=== PATIENT | female | born 1985 | race Caucasian/White ===

== ENCOUNTER 2022-07-24 12:20 | Emergency (ER) | payer OTHER, SELFPAY ==
[2022-07-24 12:24] VITALS: BP 107/61; PULSE 75; RESP 14; TEMP 36.8; O2SAT 98; BMI 21.9
[2022-07-24 12:28] VITALS: BP 107/61; PULSE 79; O2SAT 99
[2022-07-24 12:30] VITALS: PULSE 77; O2SAT 100
--- NOTE | 2022-07-24 12:45 | PC.NURSE ---
Pt reports 5-6 weeks of noticing a lump/hard area in left breast under armpit. Marked area during assessment. Reports it has gotten a little better, but is still there. Has history of sore/aches in breasts before her cycle, but the discomfort has continued through two cycles now and wants to get it looked at.
[2022-07-24 13:00] VITALS: PULSE 77; O2SAT 100
[2022-07-24 13:30] VITALS: PULSE 89; O2SAT 100
--- NOTE | 2022-07-24 13:52 | DI.RAD.S_ITS ---
PROCEDURE: XR CHEST 2V INDICATIONS: left breast lump TECHNIQUE: 2 views of the chest were acquired. COMPARISON: None. FINDINGS: Surgical changes and devices: None. Lungs and pleura: Lungs are clear. No pleural effusions or pneumothorax. Mediastinum: Mediastinal contours are normal. Heart size is normal. Bones and chest wall: No suspicious bony abnormalities. Soft tissues appear unremarkable. IMPRESSION: No acute cardiopulmonary process demonstrated radiographically. Dictated by: Elias Damico M.D. on 07/24/2022 at 14:12 Approved by: Elias Damico M.D. on 07/24/2022 at 14:12
--- NOTE | 2022-07-24 13:52 | ED.SKABFB ---
HPI - Skin/Abscess/Foreign Bdy General Chief complaint: Skin/Abscess/Foreign Body Stated complaint: pain in between arm and chest for 5 wks, low apet Time Seen by Provider: 07/24/22 12:54 Source: patient Mode of arrival: Ambulatory Limitations: no limitations History of Present Illness HPI narrative: Patient here for painful nodule in the left breast at the left upper outer quadrant. Ongoing for the past 5 weeks. Has had a lot of fatigue. Has been under lot of stress with moving here. She is in a family. Has had unintentional weight loss recently. No night sweats. Patient uncertain if breast cancer family in the history. Has not had mammogram in the past. Did have a ultrasound of the breast in the past and found to have calcifications. Does not do routine self-breast exams. Patient did have some redness to the area a couple weeks ago and thought it was due to a natural compound to placed under her arm for deodorant. However it only affected the left side. Denies any exertional chest pain. Increased pain with palpation. Patient has appointment with primary care in August Related Data Allergies Allergy/AdvReac Type Severity Reaction Status Date / Time No Known Drug Allergies Allergy Verified 07/24/22 12:29 Review of Systems Review of Systems Narrative: GENERAL: negative chills, fatigue, malaise, fever, sweats. HEENT: negative sinus pain, ear pain, sore throat RESPIRATORY: negative dyspnea, cough CARDIOVASCULAR: negative chest pain, palpitations GASTROINTESTINAL: negative nausea, vomiting, abdominal pain : negative dysuria, frequency, hematuria MUSCULOSKELETAL: negative muscle or bony pain SKIN: negative rash, positive skin lesions NEUROLOGIC: negative weakness, numbness ROS Unobtainable: All systems reviewed & are unremarkable except as noted in HPI and below Patient History Social History Smoking Status: Unknown if ever smoked Smoking Status: Unknown if ever smoked alcohol intake frequency: holidays/special occasions only Substance Use Type: does not use Exam Narrative Exam Narrative: GENERAL: in no distress, not toxic not dyspneic HEAD: Normocephalic. EYES: Pupils equal round ENT: Mucous membranes moist. NECK: Trachea midline. CARDIOVASCULAR: Regular rate and rhythm without murmurs RESPIRATORY: Clear to auscultation. Breath sounds equal bilaterally. No wheezes, rales, or rhonchi. BACK: No flank tenderness. NEURO: AOx4. SKIN: Warm and dry, female nurse, Emelyn, at bedside to entry specialists. There is a palpable tender small mobile nodule at the left breast at the left upper outer quadrant. There is no dimpling of the breast skin. No nipple discharge. No other palpable nodules in the breast, bilaterally. No axillary lymphadenopathy bilaterally. PSYCH: Not anxious, is cooperative Initial Vital Signs Initial Vital Signs: Vital Signs Temperature 98.2 F 07/24/22 12:24 Pulse Rate 75 07/24/22 12:24 Respiratory Rate 14 07/24/22 12:24 Blood Pressure 107/61 07/24/22 12:24 Pulse Oximetry 98 07/24/22 12:24 Oxygen Delivery Method 07/24/22 12:24 Course Orders Ordered: ED Orders 07/24/22 13:52 Chest [XR chest 2V] Stat 07/24/22 14:02 Complete Blood Count AUTO DIFF Stat Comprehensive Metabolic Panel Stat Vital Signs Vital signs: Vital Signs - 8 hr 07/24/22 12:24 07/24/22 12:28 07/24/22 12:28 Temperature 98.2 F Pulse Rate 75 79 Respiratory Rate 14 Blood Pressure 107/61 107/61 Pulse Oximetry 98 99 Oxygen Delivery Method Room Air 07/24/22 12:30 07/24/22 13:00 07/24/22 13:30 Temperature Pulse Rate 77 77 89 Respiratory Rate Blood Pressure Pulse Oximetry 100 100 100 Oxygen Delivery Method 07/24/22 15:21 Temperature Pulse Rate 67 Respiratory Rate 20 Blood Pressure 100/58 L Pulse Oximetry 99 Oxygen Delivery Method Room Air MDM - Skin/Abscess/Foreign Bdy Lab Data 07/24/22 14:02 07/24/22 14:02 Labs: Lab Results 07/24/22 07/24/22 Range/Units 14:02 14:02 WBC 5.8 (4.5-11.0) X10^3/uL RBC 4.35 (4.0-5.2) X10^6/uL Hgb 13.1 (12.0-16.0) g/dL Hct 38.4 (36-46) % MCV 88.3 (80-100) fL MCH 30.2 (26-34) PG MCHC 34.1 (30-36) % RDW 12.2 (11.6-14.8) % Plt Count 225 (150-400) X10^3/uL Neut % (Auto) 66.0 (50-75) % Lymph % (Auto) 24.2 L (25-40) % Archer % (Auto) 7.8 (3-14) % Eos % (Auto) 1.2 L (2-4) % Baso % (Auto) 0.8 (0-2) % Neut # (Auto) 3900 (4980-4978) /uL Lymph # (Auto) 1400 (6913-6929) /uL Archer # (Auto) 500 (0-900) /uL Eos # (Auto) 100 (0-450) /uL Baso # (Auto) 0 (0-100) /uL Sodium 140 (137-145) mmol/L Potassium 3.6 (3.4-5.1) mmol/L Chloride 99 (98-107) mmol/L Carbon Dioxide 33 H (22-32) mmol/L BUN 11 (7-17) mg/dL Creatinine 0.69 (0.52-1.04) mg/dL Estimated GFR > 60 (>60) mL/min BUN/Creatinine Ratio 15.9 (6-22) Glucose 101 H (70-100) mg/dL Calcium 8.9 (8.4-10.2) mg/dL Total Bilirubin 0.7 (0.2-1.3) mg/dL AST 21 (14-36) IU/L ALT 12 (<35) IU/L Alkaline Phosphatase 40 (38-126) U/L Total Protein 7.5 (6.3-8.2) g/dL Albumin 4.4 (3.5-5.0) g/dL Globulin 3.1 (1.7-4.1) g/dL Albumin/Globulin Ratio 1.4 (1.0-2.8) Imaging Data Chest x-ray: Radiologist's Impression: [address] [address] XRay Report Signed Patient: Mariel Drake MR#: [id number] : 1985 Acct:[id number] Age/Sex: 36 / F Date of Service: 07/24/22 Loc: ED Accession Number: [id number] ?? Procedure: XR chest 2V Ordering Provider: Evan Duenas MD PROCEDURE:? XR CHEST 2V ? INDICATIONS:? left breast lump ? TECHNIQUE:? 2 views of the chest were acquired.? ? COMPARISON:? None. ? FINDINGS:? ? Surgical changes and devices:? None.? ? Lungs and pleura:? Lungs are clear.? No pleural effusions or pneumothorax.? ? Mediastinum:? Mediastinal contours are normal.? Heart size is normal.? ? Bones and chest wall:? No suspicious bony abnormalities.? Soft tissues appear unremarkable.? ? IMPRESSION:? No acute cardiopulmonary process demonstrated radiographically. ? ? Dictated by: Elias Damico M.D. on 07/24/2022 at 14:12 ? ? Approved by: Elias Damico M.D. on 07/24/2022 at 14:12 ? [facility] Narrative Medical decision making narrative: Patient here for painful nodule in the left breast at the left upper outer quadrant. Ongoing for the past 5 weeks. Has had a lot of fatigue. Has been under lot of stress with moving here. She is in a family. Has had unintentional weight loss recently. No night sweats. Patient uncertain if breast cancer family in the history. Has not had mammogram in the past. Did have a ultrasound of the breast in the past and found to have calcifications. Does not do routine self-breast exams. Patient did have some redness to the area a couple weeks ago and thought it was due to a natural compound to placed under her arm for deodorant. However it only affected the left side. Denies any exertional chest pain. Increased pain with palpation. Patient has appointment with primary care in August After history and exam, CBC CMP and chest x-ray have been ordered. Patient will need outpatient mammogram [facility] CC: Chest wall pain Complicating co-morbidities: None Data collected from: Patient Medical records reviewed: No previous visits here Differential considered: Includes but not limited to lymphadenopathy lymphadenitis breast cancer Exam documented above, pertinent findings include: Tender palpable mobile lymph node Lab Test results independently reviewed as above. Pertinent findings: CBC without leukocytosis, CMP without acute renal injury Imaging studies independently reviewed: Chest x-ray without acute cardiopulmonary process. Treatments: None required at this time. Re-evaluations: Reviewed results with patient. She does agree she will need to contact her family doctor to order outpatient mammogram. She has appointment with primary care in August. Discussion: Appropriate for discharge home. Patient has focal lesion that is tender. No EKG indicated. Chest x-ray done for any additional nodules in the lungs. Patient will call primary care for outpatient mammogram. I did encourage her for self-breast exams regularly for potentially changes. She does understand mammogram is needed to evaluate for breast cancer. Return precautions reviewed with her. She desires discharge home. She is not taken any ibuprofen or Tylenol for pain, she states she 1st not to take any medicines. Diagnosis: Lymphadenopathy Discharge Plan Departure Patient Disposition: Home Clinical Impression: Lymphadenopathy Instructions: DI for Lymphadenopathy Activity Restrictions/Additional Instructions: Please call your primary care provider tomorrow to schedule outpatient mammogram. Please do try to move your appointment in August up sooner. Return if worse if any questions or concerns. You may try [id number] ibuprofen for pain. Referrals: [facility] [Primary Care Provider] - Stand Alone Forms: Patient Portal/API
[2022-07-24 14:11] LABS: Add Manual Diff / Slide Review NO; Basophils Absolute Auto 0 /uL (0-100); Basophils Percent Auto 0.8 % (0-2); Eosinophils Absolute Auto 100 /uL (0-450); Eosinophils Percent Auto 1.2 % (2-4); Hematocrit 38.4 % (36-46); Hemoglobin 13.1 g/dL (12.0-16.0); Lymphocytes Absolute Auto 1400 /uL (1100-4500); Lymphocytes Percent Auto 24.2 % (25-40); Mean Corpuscular HGB Conc 34.1 % (30-36); Mean Corpuscular Hemoglobin 30.2 PG (26-34); Mean Corpuscular Volume 88.3 fL (80-100); Monocytes Absolute Auto 500 /uL (0-900); Monocytes Percent Auto 7.8 % (3-14); Neutrophils Absolute Auto 3900 /uL (1500-7000); Platelet Count 225 X10^3/uL (150-400); Red Blood Cell Count 4.35 X10^6/uL (4.0-5.2); Red Cell Distribution Width 12.2 % (11.6-14.8); White Blood Cell Count 5.8 X10^3/uL (4.5-11.0)
[2022-07-24 14:23] LABS: Alanine Aminotransferase 12 IU/L (<35); Albumin 4.4 g/dL (3.5-5.0); Albumin Globulin Ratio 1.4 (1.0-2.8); Alkaline Phosphatase 40 U/L (38-126); Aspartate Aminotransferase 21 IU/L (14-36); BUN Creatinine Ratio 15.9 (6-22); Bilirubin Total 0.7 mg/dL (0.2-1.3); Blood Urea Nitrogen 11 mg/dL (7-17); Calcium 8.9 mg/dL (8.4-10.2); Carbon Dioxide 33 mmol/L (22-32); Chloride 99 mmol/L (98-107); Estimated Glomerular Filt Rate > 60 mL/min (>60); Globulin 3.1 g/dL (1.7-4.1); Glucose 101 mg/dL (70-100); HEMOLYSIS < 15 (0-50); Potassium 3.6 mmol/L (3.4-5.1); Sodium 140 mmol/L (137-145); Total Protein 7.5 g/dL (6.3-8.2)
[2022-07-24 15:21] VITALS: BP 100/58; PULSE 67; RESP 20; O2SAT 99
== END 2022-07-24 15:22 | disposition home or self-care (01) ==
PROVIDERS: Emergency Provider Emergency Medicine
DX: R59.1 Generalized enlarged lymph nodes (principal)
CPT/HCPCS: 36415; 71046; 80053; 85025; 99283

== ENCOUNTER → 2024-01-20 07:47 | Outpatient (CLI) | payer OTHER, SELFPAY ==
--- NOTE | 2024-01-20 07:49 | DI.NM.S_ITS ---
PROCEDURE: NM EXERCISE TREADMILL NON NUC COMPARISON: None INDICATIONS: Palpitations FINDINGS: Rest ECG sinus rhythm 74 bpm, resting BP 102/68. Ronald protocol 10:31, maximum heart rate 168 bpm (91% peak predicted), maximum blood pressure 106/80, 12.8 METS, MATA -13%. Exercise ECG sinus tachycardia no ST segment changes or arrhythmias. The patient did not complain of exercise-induced chest discomfort. IMPRESSION: Low risk study. No evidence of exercise-induced ischemia or arrhythmia. Flat blood pressure response. Normal heart rate response. Good exercise capacity. Dictated by: Jenny Ayala D.O. on 01/20/2024 at 12:47 Approved by: Jenny Ayaal D.O. on 01/20/2024 at 12:49
== END ==
PROVIDERS: Referring Provider Internal Medicine; Visit Provider Internal Medicine
DX: R00.2 Palpitations (principal); Z82.49 Family history of ischemic heart disease and other diseases of the circulatory system
CPT/HCPCS: 93017